=== PATIENT | male | born 1965 | race Hispanic/Latino ===

== ENCOUNTER 2020-03-28 11:19 | Emergency (ER) | payer OTHER ==
[2020-03-28 11:50] LABS: BASOPHILS % (AUTO) 0.2 % (0.0-5.0); EOSINOPHILS % (AUTO) 0.1 % (0.0-8.0); LYMPHOCYTES % (AUTO) 9.4 % (21.0-51.0); MEAN CORPUSCULAR HEMOGLOBIN 31.9 pg (27.0-33.0); MEAN CORPUSCULAR HGB CONC 34.5 g/dL (32.0-36.0); MEAN CORPUSCULAR VOLUME 92.4 fL (79-99); MONOCYTES % (AUTO) 10.5 % (3.0-13.0); NEUTROPHILS % (AUTO) 79.5 % (40.0-77.0); PLATELET COUNT (AUTO) 258 K/uL (130-400); RED BLOOD CELL COUNT(AUTO) 4.76 MIL/uL (4.50-6.20); RED CELL DISTRIBUTION WIDTH 12.9 % (11.0-15.5); WHITE BLOOD COUNT (AUTO) 10.4 K/uL (4.8-10.8)
[2020-03-28 12:00] LABS: CREATININE 1.1 mg/dL (0.5-1.5); POTASSIUM 3.2 mmol/L (3.5-5.1)
[2020-03-28 12:01] LABS: APPEARANCE,URINE Clear (CLEAR); BILIRUBIN,URINE Negative (NEGATIVE); COLOR,URINE Dark Yellow (YELLOW); GLUCOSE, URINE (UA) Negative (NEGATIVE); KETONES,URINE Trace mg/dL (NEGATIVE); LEUKOCYTE ESTERASE ,URINE Negative (NEGATIVE); NITRATE,URINE Negative (NEGATIVE); OCCULT BLOOD,URINE Negative (NEGATIVE); PROTEIN,URINE POS 1+ mg/dL (NEGATIVE)
[2020-03-28 12:04] LABS: ALBUMIN 2.6 g/dL (3.5-5.0); BILIRUBIN,TOTAL 0.7 mg/dL (0.2-1.0); TOTAL PROTEIN, SERUM 7.7 g/dL (6.0-8.3)
[2020-03-28] MEDS ORDERED: KETOROLAC TROMETHAMINE 30MG/ML ONE (12:08)
[2020-03-28 12:15] LABS: BACTERIA,URINE Rare /HPF (None Seen); RBC,URINE 0-1 /HPF (0-1); SQUAMOUS EPITHELIAL CELL,UR Few /HPF (0-2); WBC,URINE 0-1 /HPF (0-1)
== END 2020-03-28 14:35 | disposition home or self-care (01) ==
LOC: EDH 11:19
DX: S33.5XXA Sprain of ligaments of lumbar spine, initial encounter (principal); Z72.0 Tobacco use; X58.XXXA Exposure to other specified factors, initial encounter; Y93.89 Activity, other specified; Y92.89 Other specified places as the place of occurrence of the external cause; Y99.8 Other external cause status
CPT/HCPCS: 36415; 74176; 80053; 81001; 82150; 83690; 84484; 85025; 93005; 96374; 99285; J1885

== ENCOUNTER 2020-05-30 20:10 | Inpatient (IN) | payer SELFPAY ==
[2020-05-30] MEDS ORDERED: SODIUM CHLORIDE 0.9% 500ML 500 ML IV ONE (20:57)
[2020-05-30 21:08] LABS: ABG BASE EXCESS -4.7 mmol/L (-2.0-3.0); ABG HCO3 17.5 mmol/L (21.0-28.0); ABG OXYGEN SATURATION 96.9 % (95.0-99.0); ABG PCO2 26 mmHg (35-48)
[2020-05-30 21:31] LABS: BASOPHILS % (AUTO) 0.5 % (0.0-5.0); HEMATOCRIT 24.1 % (42-54); LYMPHOCYTES % (AUTO) 31.2 % (21.0-51.0); MEAN CORPUSCULAR HEMOGLOBIN 28.2 pg (27.0-33.0); MEAN CORPUSCULAR HGB CONC 31.1 g/dL (32.0-36.0); MEAN CORPUSCULAR VOLUME 90.6 fL (79-99); MONOCYTES % (AUTO) 16.5 % (3.0-13.0); NEUTROPHILS % (AUTO) 50.5 % (40.0-77.0); PLATELET COUNT (AUTO) 401 K/uL (130-400); RED BLOOD CELL COUNT(AUTO) 2.66 MIL/uL (4.50-6.20); RED CELL DISTRIBUTION WIDTH 16.3 % (11.0-15.5); WHITE BLOOD COUNT (AUTO) 5.9 K/uL (4.8-10.8)
[2020-05-30 21:48] LABS: INR 0.99 (0.85-1.15); PROTHROMBIN TIME 10.6 SEC (9.6-11.6)
[2020-05-30 21:49] LABS: PARTIAL THROMBOPLASTIN TIME 28.2 SEC (26.3-35.5)
[2020-05-30 22:01] LABS: B-TYPE NATRIURETIC PEPTIDE 22 pg/mL (0-100)
[2020-05-30 23:20] LABS: APPEARANCE,URINE Clear (CLEAR); BILIRUBIN,URINE Negative (NEGATIVE); COLOR,URINE Dark Yellow (YELLOW); GLUCOSE, URINE (UA) Negative (NEGATIVE); KETONES,URINE Negative (NEGATIVE); LEUKOCYTE ESTERASE ,URINE Negative (NEGATIVE); NITRATE,URINE Negative (NEGATIVE); OCCULT BLOOD,URINE Negative (NEGATIVE); PROTEIN,URINE Trace mg/dL (NEGATIVE)
[2020-05-30 23:45] LABS: BACTERIA,URINE Few /HPF (None Seen); MUCUS,URINE Rare LPF (None Seen); RBC,URINE 0-1 /HPF (0-1); SQUAMOUS EPITHELIAL CELL,UR 0-2 /HPF (0-2); WBC,URINE 0-1 /HPF (0-1)
[2020-05-31] MEDS ORDERED: LACTULOSE 20 GM/30 ML UDCUP PO PRN (01:15)
[2020-05-31] MEDS ORDERED: ONDANSETRON HCL 4 MG/2 ML VIAL IV PRN (01:15)
[2020-05-31] MEDS ORDERED: ACETAMINOPHEN 325 MG TAB PO PRN ×2 (01:15)
[2020-05-31 02:20] LABS: CREATININE 1.5 mg/dL (0.5-1.5)
[2020-05-31 02:25] LABS: ALBUMIN 1.6 g/dL (3.5-5.0); BILIRUBIN,TOTAL 0.3 mg/dL (0.2-1.0); TOTAL PROTEIN, SERUM 6.6 g/dL (6.0-8.3)
[2020-05-31 02:31] LABS: CRP QUANTITATIVE 233.2 mg/L (0.00-9.0)
[2020-05-31 02:37] LABS: % IRON SATURATION 14.1 % (30-44)
[2020-05-31] MEDS ORDERED: POTASSIUM CHLORIDE 10MEQ/100ML 100 ML IV PRN (03:00)
[2020-05-31] MEDS ORDERED: POTASSIUM CHLORIDE 20 MEQ ERTAB PO PRN (03:00)
[2020-05-31] MEDS ORDERED: LIDOCAINE HCL-MPF 1% 2ML VIAL IV PRN (03:00)
[2020-05-31] MEDS ORDERED: POTASSIUM CHLORIDE 10% ELIXIR 20 MEQ/15 ML UDCUP PO PRN (03:00)
[2020-05-31] MEDS ORDERED: POTASSIUM CHLORIDE 20 MEQ ERTAB PO ONE (03:30)
[2020-05-31] MEDS ORDERED: POTASSIUM CHLORIDE 10% ELIXIR 20 MEQ/15 ML UDCUP ONE (03:38)
[2020-05-31] MEDS ORDERED: SODIUM CHLORIDE 0.9% 1000ML 1,000 ML IV SCH ×2 (05:00→05:15)
[2020-05-31 05:22] LABS: BASOPHILS % (AUTO) 0.2 % (0.0-5.0); EOSINOPHILS % (AUTO) 0.3 % (0.0-8.0); HEMATOCRIT 22.7 % (42-54); LYMPHOCYTES % (AUTO) 13.5 % (21.0-51.0); MEAN CORPUSCULAR HEMOGLOBIN 28.5 pg (27.0-33.0); MEAN CORPUSCULAR HGB CONC 31.7 g/dL (32.0-36.0); MEAN CORPUSCULAR VOLUME 89.7 fL (79-99); MONOCYTES % (AUTO) 10.8 % (3.0-13.0); NEUTROPHILS % (AUTO) 74.6 % (40.0-77.0); PLATELET COUNT (AUTO) 406 K/uL (130-400); RED BLOOD CELL COUNT(AUTO) 2.53 MIL/uL (4.50-6.20); RED CELL DISTRIBUTION WIDTH 16.3 % (11.0-15.5); WHITE BLOOD COUNT (AUTO) 6.6 K/uL (4.8-10.8)
[2020-05-31 05:58] LABS: CREATININE 1.2 mg/dL (0.5-1.5); POTASSIUM 3.5 mmol/L (3.5-5.1)
[2020-05-31] MEDS ORDERED: IOHEXOL-350 75 ML VIAL IV ONE (06:39)
[2020-05-31] MEDS ORDERED: FAMOTIDINE 20MG TAB 20 MG TAB PO SCH (09:00)
== END 2020-05-31 10:17 | disposition left against medical advice (07) | DRG 812 ==
LOC: EDH 20:10 → EDHIP 20:11
PROVIDERS: ADMIT Internal Medicine; ATTEND Internal Medicine
DX: D64.9 Anemia, unspecified (principal); E87.6 Hypokalemia; K44.9 Diaphragmatic hernia without obstruction or gangrene; Z20.828 Contact with and (suspected) exposure to other viral communicable diseases
CPT/HCPCS: 36415; 36600; 71045; 80048; 80053; 81001; 82270; 82550; 82607; 82728; 82746; 82803; 83540; 83550; 83605; 83615; 83690; 83880; 84484; 85025; 85378; 85610; 85730; 86140; 86850; 86900; 86901; 86923; 87040; 87426; 87804; 93005; G0378; J7040; Q9967; U0003

== ENCOUNTER 2020-06-05 14:18 | Inpatient (IN) | payer SELFPAY ==
[~2020-06-05] VITALS: Ht 167.6 cm; Wt 85.4 kg
[2020-06-05 14:52] LABS: BASOPHILS % (AUTO) 0.4 % (0.0-5.0); EOSINOPHILS % (AUTO) 0.5 % (0.0-8.0); HEMATOCRIT 22.5 % (42-54); MEAN CORPUSCULAR HGB CONC 30.2 g/dL (32.0-36.0); MEAN CORPUSCULAR VOLUME 92.6 fL (79-99); MONOCYTES % (AUTO) 15.8 % (3.0-13.0); NEUTROPHILS % (AUTO) 61.8 % (40.0-77.0); PLATELET COUNT (AUTO) 422 K/uL (130-400); RED BLOOD CELL COUNT(AUTO) 2.43 MIL/uL (4.50-6.20); RED CELL DISTRIBUTION WIDTH 16.8 % (11.0-15.5); WHITE BLOOD COUNT (AUTO) 5.6 K/uL (4.8-10.8)
[2020-06-05 15:10] LABS: CREATININE 1.1 mg/dL (0.5-1.5); POTASSIUM 3.4 mmol/L (3.5-5.1)
[2020-06-05 15:12] LABS: INR 1.02 (0.85-1.15); PROTHROMBIN TIME 10.9 SEC (9.6-11.6)
[2020-06-05 15:14] LABS: ALBUMIN 1.9 g/dL (3.5-5.0); BILIRUBIN,TOTAL 0.2 mg/dL (0.2-1.0); PARTIAL THROMBOPLASTIN TIME 25.4 SEC (26.3-35.5); TOTAL PROTEIN, SERUM 7.2 g/dL (6.0-8.3)
[2020-06-05] MEDS ORDERED: SODIUM CHLORIDE 0.9% 1000ML 1,000 ML IV ONE (15:14)
[2020-06-05 16:07] LABS: APPEARANCE,URINE Clear (CLEAR); BILIRUBIN,URINE Small (NEGATIVE); COLOR,URINE Dark Yellow (YELLOW); GLUCOSE, URINE (UA) Negative (NEGATIVE); KETONES,URINE Negative (NEGATIVE); LEUKOCYTE ESTERASE ,URINE Trace (NEGATIVE); NITRATE,URINE Negative (NEGATIVE); OCCULT BLOOD,URINE Negative (NEGATIVE); PROTEIN,URINE Trace mg/dL (NEGATIVE)
[2020-06-05 16:10] LABS: RETICULOCYTE % (AUTO) 3.07 % (0.42-2.23)
[2020-06-05 16:15] LABS: AMPHET/METH SCREEN,URINE NEGATIVE (NEGATIVE); BARBITURATE SCREEN, URINE POSITIVE (NEGATIVE); BENZODIAZEPINES SCREEN,URINE NEGATIVE (NEGATIVE); CANNABINOID SCREEN,URINE NEGATIVE (NEGATIVE); COCAINE SCREEN,URINE NEGATIVE (NEGATIVE); OPIATE SCREEN,URINE NEGATIVE (NEGATIVE); PHENCYCLIDINE SCREEN,URINE NEGATIVE (NEGATIVE)
[2020-06-05] MEDS ORDERED: ACETAMINOPHEN-CODEINE 300/30MG TAB PO PRN (16:30)
[2020-06-05] MEDS: LACTATED RINGERS 1000ML 1,000 ML IV SCH (16:30)
[2020-06-05 16:31] LABS: THYROID STIMULATING HORMONE 2.76 uIU/mL (0.36-3.74)
[2020-06-05 16:38] LABS: BACTERIA,URINE Rare /HPF (None Seen); MUCUS,URINE Rare LPF (None Seen); RBC,URINE 0-1 /HPF (0-1); SQUAMOUS EPITHELIAL CELL,UR Rare /HPF (0-2); WBC,URINE 0-1 /HPF (0-1)
[2020-06-05 16:39] LABS: HYALINE CASTS, URINE 0-1 /LPF (0-1 /LPF)
[2020-06-05] MEDS ORDERED: LACTATED RINGERS 1000ML 1,000 ML IV ONE (16:52)
[2020-06-05 17:01] LABS: % IRON SATURATION 11.4 % (30-44)
[2020-06-05] MEDS ORDERED: SODIUM CHLORIDE 0.9% 250 ML IV ONE (17:25)
[2020-06-05] MEDS: ZOSYN 3.375GM+NS 50ML 50 ML IV SCH (18:00)
[2020-06-05] MEDS ORDERED: ZOSYN 3.375GM+NS 50ML 50 ML IV ONE (19:52)
[2020-06-05] MEDS ORDERED: PANTOPRAZOLE 40 MG/VIAL ONE (19:56)
[2020-06-05] MEDS: PANTOPRAZOLE 40 MG/VIAL IVP SCH (21:00)
[2020-06-05 23:30] VITALS: BP 140/93
[2020-06-06] MEDS: ZOSYN 3.375GM+NS 50ML 50 ML IV SCH ×4 (02:12→21:02)
[2020-06-06 03:48] VITALS: BP 129/81
[2020-06-06 04:20] LABS: BASOPHILS % (AUTO) 0.4 % (0.0-5.0); EOSINOPHILS % (AUTO) 0.6 % (0.0-8.0); HEMATOCRIT 21.8 % (42-54); LYMPHOCYTES % (AUTO) 21.9 % (21.0-51.0); MEAN CORPUSCULAR HEMOGLOBIN 28.6 pg (27.0-33.0); MEAN CORPUSCULAR HGB CONC 31.2 g/dL (32.0-36.0); MEAN CORPUSCULAR VOLUME 91.6 fL (79-99); NEUTROPHILS % (AUTO) 59.5 % (40.0-77.0); PLATELET COUNT (AUTO) 351 K/uL (130-400); RED BLOOD CELL COUNT(AUTO) 2.38 MIL/uL (4.50-6.20); RED CELL DISTRIBUTION WIDTH 16.2 % (11.0-15.5); WHITE BLOOD COUNT (AUTO) 5.3 K/uL (4.8-10.8)
[2020-06-06 04:42] LABS: ALBUMIN 1.6 g/dL (3.5-5.0); BILIRUBIN,TOTAL 0.4 mg/dL (0.2-1.0); CREATININE 0.9 mg/dL (0.5-1.5); POTASSIUM 3.5 mmol/L (3.5-5.1); TOTAL PROTEIN, SERUM 6.3 g/dL (6.0-8.3)
[2020-06-06 08:05] VITALS: BP 144/98
[2020-06-06] MEDS ORDERED: MULTIVITAMIN TABLET PO SCH (09:00)
[2020-06-06] MEDS ORDERED: THIAMINE HCL 100 MG TABLET PO SCH (09:00)
[2020-06-06] MEDS ORDERED: FOLIC ACID 1 MG TABLET PO SCH (09:00)
[2020-06-06 13:31] VITALS: BP 129/90
[2020-06-06] MEDS: PANTOPRAZOLE 40 MG/VIAL IVP SCH ×2 (14:08→21:00)
[2020-06-06] MEDS: LACTATED RINGERS 1000ML 1,000 ML IV SCH ×2 (14:08→21:03)
[2020-06-06 14:40] LABS: HEMATOCRIT 26.9 % (42-54)
[2020-06-06 16:10] VITALS: BP 120/77
[2020-06-06 19:42] VITALS: BP 130/87
== END 2020-06-06 22:43 | disposition left against medical advice (07) | DRG 812 ==
LOC: EDH 14:18 → OBSVTOIN 14:19 → EDHIP 14:19 → 4BH 23:45
PROVIDERS: ADMIT Internal Medicine; ATTEND Internal Medicine
PROC: 30233N1 Transfusion of Nonautologous Red Blood Cells into Peripheral Vein, Percutaneous Approach (ICD-10-PCS; principal; 2020-06-05)
DX: D50.9 Iron deficiency anemia, unspecified (principal); N13.6 Pyonephrosis; Z20.828 Contact with and (suspected) exposure to other viral communicable diseases; Z87.891 Personal history of nicotine dependence; N28.89 Other specified disorders of kidney and ureter; E11.9 Type 2 diabetes mellitus without complications; R19.04 Left lower quadrant abdominal swelling, mass and lump
CPT/HCPCS: 36415; 36430; 71045; 74176; 80053; 80305; 81001; 82270; 82550; 82607; 82728; 82746; 83010; 83540; 83550; 83615; 84443; 84484; 85014; 85018; 85025; 85045; 85610; 85730; 86850; 86900; 86901; 86923; 87426; C9113; G0378; J2543; J7030; J7050; J7120; P9016; U0003

== ENCOUNTER → 2020-11-04 | Outpatient (CLI) | payer OTHER | END | disposition home or self-care (01) | LOC: OIH 16:03 | PROVIDERS: ATTEND Family Medicine | DX: M47.814 Spondylosis without myelopathy or radiculopathy, thoracic region (principal) | CPT/HCPCS: 72070 ==

== ENCOUNTER 2021-11-13 12:57 | Inpatient (IN) | payer MEDICAID, OTHER ==
[2021-11-13] VITALS (20 sets, daily range): BP systolic 104–136; BP diastolic 58–82
[~2021-11-13] VITALS: Ht 170.2 cm; Wt 104.3 kg
[2021-11-13 13:34] LABS: BASOPHILS % (AUTO) 0.3 % (0.0-5.0); EOSINOPHILS % (AUTO) 0.1 % (0.0-8.0); HEMATOCRIT 45.7 % (42-54); LYMPHOCYTES % (AUTO) 3.9 % (21.0-51.0); MEAN CORPUSCULAR HEMOGLOBIN 31.7 pg (27.0-33.0); MEAN CORPUSCULAR HGB CONC 33.7 g/dL (32.0-36.0); MONOCYTES % (AUTO) 2.3 % (3.0-13.0); PLATELET COUNT (AUTO) 221 K/uL (130-400); RED BLOOD CELL COUNT(AUTO) 4.86 MIL/uL (4.50-6.20); WHITE BLOOD COUNT (AUTO) 14.2 K/uL (4.8-10.8)
[2021-11-13 13:44] LABS: BILIRUBIN,URINE Negative (NEGATIVE); COLOR,URINE Dark Yellow (YELLOW); GLUCOSE, URINE (UA) Negative (NEGATIVE); KETONES,URINE Negative (NEGATIVE); LEUKOCYTE ESTERASE ,URINE Negative (NEGATIVE); NITRATE,URINE Negative (NEGATIVE); OCCULT BLOOD,URINE Negative (NEGATIVE); PROTEIN,URINE 300 mg/dL (NEGATIVE)
[2021-11-13 13:45] LABS: APPEARANCE,URINE CLEAR (CLEAR)
[2021-11-13 13:46] LABS: POTASSIUM 4.1 mmol/L (3.5-5.1)
[2021-11-13 13:51] LABS: ALBUMIN 3.9 g/dL (3.5-5.0); BILIRUBIN,TOTAL 0.4 mg/dL (0.2-1.0); TOTAL PROTEIN, SERUM 8.5 g/dL (6.0-8.3)
[2021-11-13 13:58] LABS: BACTERIA,URINE Rare /HPF (None Seen); MUCUS,URINE Moderate LPF (None Seen); RBC,URINE None Seen /HPF (0-1); SQUAMOUS EPITHELIAL CELL,UR 0-2 /HPF (0-2); WBC,URINE 0-1 /HPF (0-1)
[2021-11-13] MEDS ORDERED: 0.9%NACL 1000ML 1,000 ML IV ONE (14:00)
[2021-11-13] MEDS ORDERED: KETOROLAC 15MG/ML VIAL (15MG/ML) IV ONE (14:00)
[2021-11-13] MEDS ORDERED: MORPHINE 4 MG SYG IVP ONE (14:00)
[2021-11-13] MEDS ORDERED: ONDANSETRON 4MG INJ IVP ONE (14:00)
[2021-11-13] MEDS ORDERED: ZOSYN 3.375GM +NS 50ML IV SCH (15:00)
[2021-11-13] MEDS ORDERED: METRONIDAZOLE 500MG/100ML BAG 100 ML IVPB SCH (15:30)
[2021-11-13] MEDS ORDERED: HYDROMORPHONE 0.5 MG SYG (0.5MG/0.5ML) IVP PRN (16:00)
[2021-11-13] MEDS ORDERED: THIAMINE HCL 100 MG/ML 2ML VIAL IVP SCH (16:00)
[2021-11-13] MEDS ORDERED: ONDANSETRON 4MG INJ IVP PRN (16:00)
[2021-11-13] MEDS ORDERED: KETOROLAC 15MG/ML VIAL (15MG/ML) IV PRN (16:00)
[2021-11-13] MEDS: DEXTROSE 5 % AND 0.9 % NACL 1,000 ML IV SCH (16:00)
[2021-11-13] MEDS ORDERED: CEFAZOLIN SODIUM 1 GM VIAL ONE (16:34)
[2021-11-13] MEDS ORDERED: BUPIVACAINE/PF 0.25% 30ML VIAL IJ ONE (16:35)
[2021-11-13] MEDS ORDERED: LIDOCAINE 1%-EPI 1:100,000 20 ML VIAL IJ ONE (16:35)
[2021-11-13] MEDS ORDERED: LACTATED RINGERS 1000ML 1,000 ML IV ONE (17:13)
[2021-11-13] MEDS ORDERED: PROPOFOL 10 MG/ML 20ML VIAL IV ONE (17:24)
[2021-11-13] MEDS ORDERED: SUCCINYLCHOLINE CHLORIDE 20 MG/ML 10 ML VIAL ONE (17:24)
[2021-11-13] MEDS ORDERED: LIDOCAINE PF 100MG/5ML (2%) SYRINGE 5ML ONE (17:24)
[2021-11-13] MEDS ORDERED: FENTANYL CITRATE PF 50 MCG/1 ML 2ML VIAL ONE (17:25)
[2021-11-13] MEDS ORDERED: ROCURONIUM 10MG/1ML SYR 10 MG/ML ML ONE ×2 (17:25→18:05)
[2021-11-13] MEDS ORDERED: MIDAZOLAM HCL 1 MG/ML 2ML VIAL ONE (17:25)
[2021-11-13] MEDS ORDERED: NEOSTIGMINE 5MG/5ML SYR IV ONE (18:27)
[2021-11-13] MEDS ORDERED: GLYCOPYRROLATE 1 MG/5 ML SYRINGE ONE (18:27)
[2021-11-13] MEDS ORDERED: LABETALOL 20MG VIAL IV ONE (18:34)
[2021-11-13] MEDS ORDERED: SUGAMMADEX SODIUM 200 MG/2 ML VIAL IV ONE (18:41)
[2021-11-13] MEDS ORDERED: IPRATROPIUM/ALBUTEROL SULFATE 3 ML SOLUTION IH ONE ×2 (19:06→19:30)
[2021-11-13] MEDS ORDERED: METRONIDAZOLE 500MG/100ML BAG 100 ML ONE (20:40)
[2021-11-13] MEDS: METRONIDAZOLE 500MG/100ML BAG 100 ML IVPB SCH (20:50)
[2021-11-13] MEDS ORDERED: AMLO-257 PO (21:17)
[2021-11-13] MEDS ORDERED: OMEP40CA21 PO (21:17)
[2021-11-13] MEDS ORDERED: CHOL500051 PO (21:17)
[2021-11-13] MEDS ORDERED: CYAN-52 PO (21:17)
[2021-11-13] MEDS ORDERED: GEMF600T89 PO (21:17)
[2021-11-13] MEDS ORDERED: LORA10TA7 PO (21:17)
[2021-11-13] MEDS ORDERED: METO25 PO (21:17)
[2021-11-13] MEDS ORDERED: HYDROMORPHONE 1 MG INJ IVP PRN (21:30)
[2021-11-13] MEDS: ZOSYN 3.375GM +NS 50ML IV SCH (23:58)
[2021-11-14 00:05] VITALS: BP 136/74
[2021-11-14] MEDS: OXYCODONE/ACETAMIN 5/325MG TAB PO PRN ×2 (00:19→08:06)
[2021-11-14 01:05] VITALS: BP 128/56
[2021-11-14 02:05] VITALS: BP 123/71
[2021-11-14] MEDS: DEXTROSE 5 % AND 0.9 % NACL 1,000 ML IV SCH (04:30)
[2021-11-14 05:10] LABS: HEMATOCRIT 34.8 % (42-54); MEAN CORPUSCULAR HEMOGLOBIN 31.4 pg (27.0-33.0); MEAN CORPUSCULAR HGB CONC 32.5 g/dL (32.0-36.0); MEAN CORPUSCULAR VOLUME 96.7 fL (79-99); RED BLOOD CELL COUNT(AUTO) 3.6 MIL/uL (4.50-6.20); RED CELL DISTRIBUTION WIDTH 12.9 % (11.0-15.5); WHITE BLOOD COUNT (AUTO) 10.8 K/uL (4.8-10.8)
[2021-11-14] MEDS: METRONIDAZOLE 500MG/100ML BAG 100 ML IVPB SCH (05:21)
[2021-11-14 05:23] LABS: HEMOGLOBIN A1C 6.4 % (4.0-6.0)
[2021-11-14 05:42] LABS: CREATININE 1.1 mg/dL (0.5-1.5); MAGNESIUM 1.6 mg/dL (1.80-2.40); POTASSIUM 3.7 mmol/L (3.5-5.1); THYROID STIMULATING HORMONE 1.35 uIU/mL (0.36-3.74)
[2021-11-14 08:00] VITALS: BP 114/70
[2021-11-14] MEDS: ZOSYN 3.375GM +NS 50ML IV SCH (08:05)
[2021-11-14] MEDS ORDERED: MAGNESIUM 2GM PREMIX 50ML 50 ML IV SCH (10:00)
[2021-11-14 11:33] VITALS: BP 132/76
== END 2021-11-14 13:25 | disposition home or self-care (01) | DRG 234 ==
LOC: EDH 12:57 → EDHIP 12:58 → 3AH 20:24
PROVIDERS: ADMIT Internal Medicine; ATTEND Internal Medicine
PROC: 0DTJ4ZZ Resection of Appendix, Percutaneous Endoscopic Approach (ICD-10-PCS; principal; 2021-11-13 17:25)
DX: K35.80 Unspecified acute appendicitis (principal); E87.1 Hypo-osmolality and hyponatremia; E66.9 Obesity, unspecified; E86.1 Hypovolemia; I10 Essential (primary) hypertension; E11.9 Type 2 diabetes mellitus without complications; F17.210 Nicotine dependence, cigarettes, uncomplicated; Z68.36 Body mass index [BMI] 36.0-36.9, adult; Z20.822 Contact with and (suspected) exposure to COVID-19
CPT/HCPCS: 36415; 71045; 74176; 80048; 80053; 81001; 83036; 83690; 83735; 84443; 85025; 85027; 87635; 94640; A4344; G0378; J0330; J0690; J1170; J1885; J2001; J2250; J2270; J2405; J2543; J2704; J2710; J3010; J3475; J3490; J7030; J7120

== ENCOUNTER 2022-01-30 19:39 | Emergency (ER) | payer MEDICAID ==
[~2022-01-30] VITALS: Ht 167.6 cm; Wt 108.4 kg
[~2022-01-30 19:39] MED LIST: AMLO-257 PO; CHOL500051 PO; CYAN-52 PO; GEMF600T89 PO; LORA10TA7 PO; METO25 PO; OMEP40CA21 PO
[2022-01-30] MEDS ORDERED: ONDANSETRON 4MG INJ IVP ONE (20:00)
[2022-01-30] MEDS ORDERED: 0.9%NACL 1000ML 1,000 ML IV SCH (20:00)
[2022-01-30 20:33] LABS: APPEARANCE,URINE CLEAR (CLEAR); BILIRUBIN,URINE MODERATE (NEGATIVE); COLOR,URINE YELLOW (YELLOW); GLUCOSE, URINE (UA) NEGATIVE (NEGATIVE); KETONES,URINE 5 mg/dL (NEGATIVE); LEUKOCYTE ESTERASE ,URINE NEGATIVE (NEGATIVE); NITRATE,URINE POSITIVE (NEGATIVE); OCCULT BLOOD,URINE NEGATIVE (NEGATIVE); PROTEIN,URINE 100 mg/dL (NEGATIVE)
[2022-01-30 20:39] LABS: CREATININE 1.8 mg/dL (0.5-1.5)
[2022-01-30 20:41] LABS: RBC,URINE 0-1 /HPF (0-1); WBC,URINE 0-1 /HPF (0-1)
[2022-01-30 20:42] LABS: BACTERIA,URINE Few /HPF (None Seen); MUCUS,URINE Few LPF (None Seen)
[2022-01-30 20:43] LABS: SQUAMOUS EPITHELIAL CELL,UR Moderate /HPF (0-2)
[2022-01-30 20:45] LABS: BASOPHILS % (AUTO) 0.4 % (0.0-5.0); HEMATOCRIT 45.9 % (42-54); LYMPHOCYTES % (AUTO) 3.4 % (21.0-51.0); MEAN CORPUSCULAR HEMOGLOBIN 31.4 pg (27.0-33.0); MEAN CORPUSCULAR HGB CONC 33.6 g/dL (32.0-36.0); MEAN CORPUSCULAR VOLUME 93.5 fL (79-99); MONOCYTES % (AUTO) 4.1 % (3.0-13.0); NEUTROPHILS % (AUTO) 91.8 % (40.0-77.0); PLATELET COUNT (AUTO) 236 K/uL (130-400); RED BLOOD CELL COUNT(AUTO) 4.91 MIL/uL (4.50-6.20); WHITE BLOOD COUNT (AUTO) 11.3 K/uL (4.8-10.8)
[2022-01-30 20:46] LABS: ALBUMIN 4.1 g/dL (3.5-5.0); CRP QUANTITATIVE 114.2 mg/L (0.00-9.0); TOTAL PROTEIN, SERUM 9.1 g/dL (6.0-8.3)
[2022-01-30 21:00] VITALS: BP 130/88
[2022-01-30] MEDS ORDERED: MAG/ALUM/SIMETH 30 ML UDCUP PO ONE (21:00)
[2022-01-30] MEDS ORDERED: CEFTRIAXONE 1G VIAL IVP ONE (21:00)
[2022-01-30] MEDS ORDERED: FAMOTIDINE 20MG VIAL IV ONE (21:00)
[2022-01-30] MEDS ORDERED: DICYCLOMINE HCL 10 MG/5 ML ML PO ONE (21:00)
[2022-01-30] MEDS ORDERED: ACETAMINOPHEN 500 MG TABLET PO ONE (21:00)
[2022-01-30] MEDS ORDERED: LIDOCAINE HCL 2% VISCOUS 15 ML UDCUP PO ONE (21:00)
[2022-01-30] MEDS ORDERED: ONDA4TAB10 PO (21:04)
[2022-01-30] MEDS ORDERED: ACET-2247 PO (21:04)
[2022-01-30] MEDS ORDERED: LEVO-70 PO (21:04)
[2022-01-30] MEDS ORDERED: DICY20TA2 PO (21:04)
== END 2022-01-30 21:45 | disposition home or self-care (01) ==
LOC: EDH 19:39
DX: U07.1 COVID-19 (principal); K52.9 Noninfective gastroenteritis and colitis, unspecified; N39.0 Urinary tract infection, site not specified; I95.1 Orthostatic hypotension; E86.0 Dehydration; E66.9 Obesity, unspecified; E78.00 Pure hypercholesterolemia, unspecified; I10 Essential (primary) hypertension; Z79.899 Other long term (current) drug therapy; Z68.38 Body mass index [BMI] 38.0-38.9, adult
CPT/HCPCS: 99284; 96374; 96375; 87635; 96361; 84484; 80053; 85025; 87088; 87804 ×2; 83605; 86140; 81001; 36415; C9803; J7030; J0696; J2405; S0028; J3490

== ENCOUNTER 2023-06-18 19:39 | Emergency (ER) | payer MEDICAID ==
[~2023-06-18] VITALS: Ht 170.2 cm; Wt 115.0 kg
[~2023-06-18 19:39] MED LIST changes: +ACET-2247 PO; +DICY20TA2 PO; +LEVO-70 PO; +ONDA4TAB10 PO
[2023-06-18 20:30] LABS: SARS-CoV-2, RNA, NAAT NEGATIVE SARS CoV-2 (NEGATIVE)
[2023-06-18 20:35] LABS: INFLUENZA TYPE B Negative For Type B (NEGATIVE)
[2023-06-18 20:38] LABS: INFLUENZA TYPE A Positive For Type A (NEGATIVE)
[2023-06-18 21:07] LABS: BASOPHILS # (AUTO) 0.03 K/uL (0.00-0.20); BASOPHILS % (AUTO) 0.4 % (0.0-5.0); EOSINOPHILS # (AUTO) 0.03 K/uL (0.00-0.70); EOSINOPHILS % (AUTO) 0.4 % (0.0-8.0); HEMATOCRIT 48.2 % (42-54); IMMATURE GRANULOCYTE ABSOLUTE 0.03 K/uL (0-1); LYMPHOCYTES # (AUTO) 0.6 K/uL (1.0-4.8); LYMPHOCYTES % (AUTO) 8.1 % (21.0-51.0); MEAN CORPUSCULAR HEMOGLOBIN 29.7 pg (27.0-33.0); MEAN CORPUSCULAR VOLUME 89.9 fL (79-99); MONOCYTES # (AUTO) 0.6 K/uL (0.1-1.0); NEUTROPHILS # (AUTO) 5.7 K/uL (1.8-7.7); NEUTROPHILS % (AUTO) 81.7 % (40.0-77.0); PLATELET COUNT (AUTO) 217 K/uL (130-400); RED BLOOD CELL COUNT(AUTO) 5.36 MIL/uL (4.50-6.20); RED CELL DISTRIBUTION WIDTH 14.1 % (11.0-15.5)
[2023-06-18 21:17] LABS: CARBON DIOXIDE 28 mmol/L (21-32); CHLORIDE 100 mmol/L (101-111); CREATININE 1.2 mg/dL (0.5-1.5); GLOMERULAR FILTR. RATE CALC 70 mL/min (>90); GLUCOSE,RANDOM 308 mg/dL (70-105); POTASSIUM 4.6 mmol/L (3.5-5.1); SODIUM SERUM 137 mmol/L (136-145); UREA NITROGEN, BLOOD 15 mg/dL (7-18)
[2023-06-18 21:25] LABS: CREATINE KINASE, TOTAL 218 U/L (21-232)
[2023-06-18] MEDS ORDERED: OSEL75 PO (22:41)
[2023-06-18] MEDS ORDERED: BENZ200C53 PO (22:41)
[2023-06-18 22:44] LABS: B-TYPE NATRIURETIC PEPTIDE 7 pg/mL (0-100)
[2023-06-18 22:54] VITALS: BP 140/83; PULSE 92; RESP 18; O2SAT 97
[2023-06-18] MEDS ORDERED: BENZONATATE 100 MG CAPSULE PO PRN (23:00)
== END 2023-06-18 23:03 | disposition home or self-care (01) ==
LOC: EDH 19:39
DX: J10.1 Influenza due to other identified influenza virus with other respiratory manifestations (principal); E11.9 Type 2 diabetes mellitus without complications; E66.9 Obesity, unspecified; I10 Essential (primary) hypertension; Z20.822 Contact with and (suspected) exposure to COVID-19
CPT/HCPCS: 36415; 71045; 80048; 82550; 83880; 84484; 85025; 87635; 87804; 93005

== ENCOUNTER 2024-10-13 11:22 | Emergency (ER) | payer MEDICAID ==
[~2024-10-13] VITALS: Ht 172.7 cm; Wt 115.2 kg
[~2024-10-13 11:22] MED LIST changes: +BENZ200C53 PO; +ONDA-243 PO; -ONDA4TAB10 PO; +OSEL75 PO
--- NOTE | 2024-10-13 11:35 | ERN ---
General Chief Complaint: Abdominal Pain Stated Complaint: EPIGASTRIC PAIN Time Seen by MD: 11:27 Source: patient History of Present Illness Initial Comments PATIENT IS A 59-YEAR-OLD GENTLEMAN COMING IN TO BE EVALUATED FOR EPIGASTRIC PAIN. PATIENT STATES THAT THE PAIN HAS BEEN ONGOING FOR THREE DAYS. PREVIOUSLY HE WAS DIAGNOSED WITH GASTRITIS AND HAS A SURGICAL PROCEDURE TO REVERSAL. HE STATES THAT HE HAS BEEN OKAY UNTIL THREE DAYS AGO WHEN HE STARTED HAVING EPIGASTRIC DISCOMFORT. NO NAUSEOUSNESS OR VOMITING JUST A BURNING SENSATION. Allergies: Coded Allergies: No Known Allergies (Verified Allergy, Unknown, 05/31/20) Home Meds Active Scripts Benzonatate (Benzonatate) 200 Mg Capsule, 200 MG PO Q6HPRN PRN for COUGH/COLD SYMPTOMS for 7 Days, #28 CAP Prov:DWAIN MILAN VALIDATION CONSULTANT 06/18/23 Oseltamivir Phosphate (Tamiflu) 75 Mg Cap, 75 MG PO BID for 5 Days, #10 CAP Prov:DWAIN MILAN VALIDATION CONSULTANT 06/18/23 Acetaminophen (Tylenol) 325 Mg Tablet, 650 MG PO Q4HPRN, #50 TAB Prov:SHAWN JAIN 01/30/22 Ondansetron (Ondansetron Odt) 4 Mg Tab.rapdis, 4 MG PO TID, #21 TAB Prov:HSAWN JAIN 01/30/22 Dicyclomine HCl (Bentyl) 20 Mg Tab, 20 MG PO QIDP, #28 TAB Prov:SHAWN JAIN 01/30/22 Levofloxacin (Levofloxacin) 500 Mg Tablet, 1 TAB PO DAILY for 10 Days, #10 TAB 0 Refills Prov:SHAWN JAIN 01/30/22 Reported Medications Loratadine (Claritin) 10 Mg Tab, 1 TAB PO QDP 11/13/21 Omeprazole (Omeprazole) 40 Mg Capsule.dr, 1 CAP PO QDP 11/13/21 Amlodipine Besylate (Amlodipine Besylate) 5 Mg Tablet, 1 TAB PO QDP 11/13/21 Gemfibrozil (Gemfibrozil) 600 Mg Tablet, 1 TAB PO QDP 11/13/21 Cyanocobalamin (Vitamin B-12) (Vitamin B-12) 1,000 Mcg Tablet, 1 TAB PO QDP 11/13/21 Cholecalciferol (Vitamin D3) (Vitamin D3) 125 Mcg Capsule, 1 CAP PO QDP 11/13/21 Metoprolol Tartrate (Lopressor) 25 Mg Tab, 1 TAB PO BID 11/13/21 Past Medical History Past Medical History: Diabetes-Type I, Diabetes-Type II, High Cholesterol, Hypertension Medical History Other: Obese Past Surgical History: Other Surgical History Other: KIDNEY CYST REMOVAL Family History Family History: Negative Social History Social History: Lives with family, Other ROS Dictation CONSTITUTIONAL: NO CHILLS, NO FEVER, NO WEAKNESS, NO DIAPHORESIS, NO MALAISE. HEAD/FACE: NO SIGNS OF TRAUMA. EENT: NO EYE PAIN, NO BLURRED VISION, NO TEARING, NO DOUBLE VISION, NO EAR PAIN, NO EAR DISCHARGE, NO NOSE PAIN, NO NASAL CONGESTION, NO THROAT PAIN, NO THROAT SWELLING, NO MOUTH PAIN. RESPIRATORY: NO COUGH, NO ORTHOPNEA, NO SOB, NO STRIDOR, NO WHEEZING. CARDIOVASCULAR: NO CHEST PAIN, NO EDEMA, NO PALPITATIONS, NO SYNCOPE. GASTROINTESTINAL/ABDOMINAL: ABDOMINAL PAIN, NO CONSTIPATION, NO DIARRHEA, NO NAUSEA, NO VOMITING. GENITOURINARY: NO ABNORMAL DISCHARGE, NO DYSURIA, NO FREQUENT URINATION, NO HEMATURIA. NO COMPLAINTS OF PAIN IN THE GENITALS. MUSCULOSKELETAL: NO BACK PAIN, NO GOUT, NO JOINT PAIN, NO JOINT SWELLING, NO MUSCLE PAIN, NO MUSCLE STIFFNESS, NO NECK PAIN. INTEGUMENTARY: NO CHANGE IN COLOR, NO CHANGE IN HAIR/NAILS, NO DRYNESS, NO LESION, NO LUMPS, NO RASH. NEUROLOGICAL/PSYCH: NO ANXIETY, NOT DEPRESSED, NO EMOTIONAL PROBLEM, NO HEADACHE, NO NUMBNESS, NO PRE-EXISTING DEFICIT, NO HISTORY OF SEIZURES, NO CRAIG MORS, NO WEAKNESS. HEMATOLOGIC/LYMPHATIC: NOT ANEMIC, NO HISTORY OF BLOOD CLOTS, NO APPARENT BLEEDING, NO BRUISING, GLANDS NOT SWOLLEN. ALL SYSTEMS NEGATIVE, EXCEPT NOTED. Physical Exam Physical Exam Dictation VITAL SIGNS: REVIEWED. GENERAL APPEARANCE: ALERT, ORIENTED X3, NO ACUTE DISTRESS, OBESE. HEAD AND FACE: NON-TRAUMATIC. EYES: PERRL, PINK CONJUNCTIVAS, EYELID NO TRAUMA, ANTERIOR CHAMBER CLEAR. EARS: PINNAS INTACT AND NO SIGNS OF TRAUMA OR ERYTHEMA. EAR CANALS CLEAR AND NO DISCHARGE. TMS NO ERYTHEMA. NOSE: NO DISCHARGE, NO BLEEDING. OROPHARYNX: MOUTH NORMAL, TEETH NO CARIES, TONGUE PINK. PHARYNX CLEAR, NO ERYTHEMA. TONSILS NO EXUDATES, NO ABSCESSES NOTED. MUCOUS MEMBRANE MOIST. NECK: SUPPLE, NON-TENDER, NO THYROMEGALY, NO MASSES, NO JVD, NO BRUITS. BREAST: DEFERRED. CHEST: NO TENDERNESS, NO CREPITUS, NO PARADOXICAL MOVEMENT, NO RETRACTIONS. LUNGS: CLEAR, WELL-VENTILATED, SYMMETRIC, NO RALES, NO WHEEZING, NO RHONCHI, NO STRIDOR, GOOD BREATH SOUNDS BILATERALLY. HEART: REGULAR RATE, REGULAR RHYTHM, NO MURMUR, NO GALLOPS. VASCULAR: NO PERIPHERAL EDEMA. ABDOMEN: SOFT, POSITIVE BOWEL SOUNDS, NONDISTENDED, NO GUARDING, EPIGASTRIC TENDER, NO REBOUND, NO MASSES NO HEPATOMEGALY, NO SPLENOMEGALY, NO RAMÍREZ'S SIGN, NO HERNIAS. RECTAL: DEFERRED. GENITAL: DEFERRED. NEUROLOGICAL: NORMAL SPEECH, GROSS MOTOR FUNCTION INTACT, GROSS SENSORY FUNCTION INTACT. MUSCULOSKELETAL: NECK NONTENDER, FULL RANGE OF MOTION, BACK NONTENDER, FULL RANGE OF MOTION. EXTREMITIES: NONTENDER, FULL RANGE OF MOTION. SKIN: COLOR PINK, DRY, NO TURGOR, NO RASH, NO LACERATIONS, NO ABRASIONS, NO CONTUSIONS. LYMPHATICS: DEFERRED. Results Laboratory and Microbiology Lab and Micro Result Laboratory Tests Test 10/13/24 11:52 10/13/24 12:00 White Blood Count 8.1 K/uL (4.8-10.8) Red Blood Count 4.94 MIL/uL (4.50-6.20) Hemoglobin 14.4 g/dL (14.0-18.0) Hematocrit 44.5 % (42-54) Mean Corpuscular Volume 90.1 fL (79-99) Mean Corpuscular Hemoglobin 29.1 pg (27.0-33.0) Mean Corpuscular Hemoglobin Concent 32.4 g/dL (32.0-36.0) Red Cell Distribution Width 15.2 % (11.0-15.5) Platelet Count 340 K/uL (130-400) Mean Platelet Volume 10.2 fL (7.5-10.5) Immature Granulocyte % (Auto) 0.6 % (0-1) Neutrophils (%) (Auto) 69.4 % (40.0-77.0) Lymphocytes (%) (Auto) 20.2 % (21.0-51.0) L Monocytes (%) (Auto) 7.0 % (3.0-13.0) Eosinophils (%) (Auto) 2.3 % (0.0-8.0) Basophils (%) (Auto) 0.5 % (0.0-5.0) Neutrophils # (Auto) 5.6 K/uL (1.8-7.7) Lymphocytes # (Auto) 1.6 K/uL (1.0-4.8) Monocytes # (Auto) 0.6 K/uL (0.1-1.0) Eosinophils # (Auto) 0.19 K/uL (0.00-0.70) Basophils # (Auto) 0.04 K/uL (0.00-0.20) Absolute Immature Granulocyte (auto 0.05 K/uL (0-1) Nucleated Red Blood Cells 0.0 % (0.0-0.19) Sodium Level 138 mmol/L (136-145) Potassium Level 4.3 mmol/L (3.5-5.1) Chloride Level 104 mmol/L (101-111) Carbon Dioxide Level 27 mmol/L (21-32) Blood Urea Nitrogen 23 mg/dL (7-18) H Creatinine 1.3 mg/dL (0.5-1.3) Glomerular Filtration Rate Calc 63 mL/min (>90) Random Glucose 205 mg/dL (70-105) H Total Calcium 9.2 mg/dL (8.5-10.1) Total Bilirubin 0.3 mg/dL (0.2-1.0) Aspartate Amino Transf (AST/SGOT) 25 U/L (10-37) Alanine Aminotransferase (ALT/SGPT) 30 U/L (12-78) Alkaline Phosphatase 96 U/L (50-136) Total Creatine Kinase 84 U/L (21-232) # Troponin I High Sensitivity 4 ng/L (4-75) Total Protein 7.9 g/dL (6.0-8.3) Albumin 3.6 g/dL (3.5-5.0) Lipase 132 U/L (16-77) H Urine Color LIGHT-YELLOW (YELLOW) Urine Appearance CLEAR (CLEAR) Urine pH 6.0 (5.0-8.0) Urine Specific [place] 1.029 (1.001-1.031) Urine Protein NEGATIVE mg/dL (NEGATIVE) Urine Glucose (UA) >=1000 mg/dL (NEGATIVE) H Urine Ketones NEGATIVE mg/dL (NEGATIVE) Urine Occult Blood NEGATIVE (NEGATIVE) Urine Nitrate NEGATIVE (NEGATIVE) Urine Bilirubin NEGATIVE mg/dL (NEGATIVE) Urine Urobilinogen 2.0 mg/dL (0.2-1.0) H Urine Leukocyte Esterase NEGATIVE [place]/uL Urine RBC 0-1 /HPF (0-1) Urine WBC 0-1 /HPF (0-1) Urine Squamous Epithelial Cells RARE /HPF (0-2) Urine Bacteria None /HPF (None Seen) Labs Reviewed?: Yes EKG/XRAY/US/CT/MRI EKG Comment 10/13/2024 TIME 11:36 A.M. VENTRICULAR RATE 71 SINUS RHYTHM IN [address] WAVE ELEVATION OR DEPRESSION MDM MDM: DIFFERENTIAL DIAGNOSIS: GASTRITIS, GERD, PANCREATITIS, STEMI, NSTEMI, RATIONALE: TESTS CONSIDERED AND ORDERED SECONDARY TO SHARED DECISION MAKING INCLUDE: PREVIOUS OUTSIDE RECORDS REVIEWED: OLD ER VISITS. RISK OF COMPLICATION AND/OR MORBIDITY OR MORTALITY OF PATIENT MANAGEMENT: NONE IN HIS IS A 59-YEAR-OLD MALE COMING IN TO BE EVALUATED FOR EPIGASTRIC PAIN. LABORATORY WORKUP NEGATIVE SO HE WAS FINDINGS RECEIVED SHE WAS COCKTAIL WELL IV PROTONIX STATES HE FEELS. PATIENT WAS OF THE HISTORY OF GASTRITIS HE WILL BE DISCHARGED IN STABLE CONDITION HE WAS PROTONIX. ED Course Orders Procedure Category Date Status Time Cbc With Differential LAB 10/13/24 Complete 11:32 Comprehensive LAB 10/13/24 Complete Metabolic Panel 11:32 Troponin I High LAB 10/13/24 Complete Sensitivity 11:32 Urinalysis Profile LAB 10/13/24 Complete 11:32 12 Lead Ekg Tracing- EKG 10/13/24 Logged Technical 11:32 Lactated Ringers PHA 10/13/24 Complete 1000ml (Lactated 12:00 Ondansetron 4mg Inj PHA 10/13/24 Complete (Zofran 4mg Inj) 12:00 Lidocaine Hcl 2% PHA 10/13/24 Complete Viscous (Lidocaine Hcl 12:00 Mag/Alum/Simeth 30ml PHA 10/13/24 Complete (Maalox Plus 30ml) 12:00 Pantoprazole 40mg Inj PHA 10/13/24 Complete (Protonix 40mg Inj 12:00 Creatine Kinase, Total LAB 10/13/24 Complete 11:32 Chest 1vw RAD 10/13/24 Resulted 11:32 Lipase LAB 10/13/24 Complete 11:32 Current Medications Medications (Trade) Dose Ordered Sig/John Route PRN Reason Start Time Stop Time Status Last Admin Dose Admin Al Hydroxide/Mg Hydroxide (MAALox PLUS 30ML) 30 ml ONCE ONCE PO 10/13/24 12:00 10/13/24 12:01 DC 10/13/24 11:45 Lactated Ringer's 1,000 ml @ 0 mls/hr ONCE ONCE IV 10/13/24 12:00 10/13/24 12:01 DC 10/13/24 11:45 Lidocaine HCl (Lidocaine HCl 2% Viscous) 10 ml ONCE ONCE PO 10/13/24 12:00 10/13/24 12:01 DC 10/13/24 11:45 Ondansetron HCl (zoFRAN 4MG INJ) 4 mg ONCE ONCE IVP 10/13/24 12:00 10/13/24 12:01 DC 10/13/24 11:45 Pantoprazole Sodium (PROTonix 40MG INJ) 40 mg ONCE ONCE IVP 10/13/24 12:00 10/13/24 12:01 DC 10/13/24 11:45 Vital Signs Date Time Temp Pulse Resp B/P (MAP) Pulse Ox O2 Delivery O2 Flow Rate FiO2 10/13/24 11:26 97.5 79 16 113/73 94 Room Air DX & DISP Disposition: Discharge Departure Impression: Primary Impression: Gastritis Additional Impression: GERD (gastroesophageal reflux disease) Condition: Stable Scripts Pantoprazole Sodium (Protonix) 40 Mg Ectab 1 TAB PO DAILY for 30 Days, #30 TAB 0 Refills Prov: ANAI DE ANDA MD 10/13/24 Additional Instructions: FOLLOW-UP WITH PRIMARY CARE PROVIDER IN 1 TO 2 DAYS. TAKE MEDICATIONS DIRECTED HERE IN THE EMERGENCY ROOM. OKAY TO CONTINUE HOME MEDICATIONS UNLESS OTHERWISE DISCUSSED DURING YOUR VISIT IN THE EMERGENCY ROOM TODAY. RETURN TO YOUR NEAREST EMERGENCY ROOM IF SYMPTOMS WORSEN OR IF THERE IS NO IMPROVEMENT. CALL 911 IF YOU NEED IMMEDIATE ASSISTANCE. TAKE TYLENOL [id number] NEEDED AND IF NO CONTRAINDICATIONS ARE PRESENT. INCREASE ORAL HYDRATION. A WOUND CULTURE OR URINE CULTURE WAS ORDERED HERE IN THE EMERGENCY ROOM DEPARTMENT PLEASE FOLLOW-UP WITH PRIMARY CARE PROVIDER AND ADVISE THEM TO GET REPEAT PORTS FROM OUR FACILITY. IF YOU HAD ANY KELVIN WRAP/SPLINTS THAT WERE APPLIED HERE, PLEASE DO NOT REMOVE THEM UNTIL YOU SEE YOUR PRIMARY CARE OR SPECIALTY. REFERRALS: Referrals: SELF,REFERRAL (PCP) KATTY ALBERT MD Time of Disposition: 12:46 ANAI DE ANDA MD October 13, 2024 11:34
[2024-10-13] MEDS: ondanSETRON 4MG INJ IVP ONE (11:45)
[2024-10-13] MEDS: MAG/ALUM/SIMETH 30 ML UDCUP PO ONE (11:45)
[2024-10-13] MEDS: PANTOPrazole 40 MG/VIAL IVP ONE (11:45)
[2024-10-13] MEDS: LIDOCAINE HCL 2% VISCOUS 15 ML UDCUP PO ONE (11:45)
[2024-10-13] MEDS: LACTATED RINGERS 1000ML 1,000 ML IV ONE (11:45)
--- NOTE | 2024-10-13 12:14 | HMCIMG ---
CHEST 1VW HISTORY: Chest pain COMPARISON: 2023 FINDINGS: A frontal projection of the chest was obtained. No acute pulmonary infiltrates is seen. The heart is borderline enlarged. Prominent interstitial markings are seen. Degenerative changes are seen. IMPRESSION: 1. No acute pulmonary infiltrate is seen.
[2024-10-13 12:15] LABS: BASOPHILS # (AUTO) 0.04 K/uL (0.00-0.20); BASOPHILS % (AUTO) 0.5 % (0.0-5.0); EOSINOPHILS # (AUTO) 0.19 K/uL (0.00-0.70); EOSINOPHILS % (AUTO) 2.3 % (0.0-8.0); HEMATOCRIT 44.5 % (42-54); IMMATURE GRANULOCYTE ABSOLUTE 0.05 K/uL (0-1); LYMPHOCYTES # (AUTO) 1.6 K/uL (1.0-4.8); LYMPHOCYTES % (AUTO) 20.2 % (21.0-51.0); MEAN CORPUSCULAR HEMOGLOBIN 29.1 pg (27.0-33.0); MEAN CORPUSCULAR HGB CONC 32.4 g/dL (32.0-36.0); MEAN CORPUSCULAR VOLUME 90.1 fL (79-99); MONOCYTES # (AUTO) 0.6 K/uL (0.1-1.0); NEUTROPHILS # (AUTO) 5.6 K/uL (1.8-7.7); NEUTROPHILS % (AUTO) 69.4 % (40.0-77.0); PLATELET COUNT (AUTO) 340 K/uL (130-400); RED BLOOD CELL COUNT(AUTO) 4.94 MIL/uL (4.50-6.20); RED CELL DISTRIBUTION WIDTH 15.2 % (11.0-15.5); WHITE BLOOD COUNT (AUTO) 8.1 K/uL (4.8-10.8)
[2024-10-13 12:18] LABS: APPEARANCE,URINE CLEAR (CLEAR); BILIRUBIN,URINE NEGATIVE (NEGATIVE); COLOR,URINE LIGHT-YELLOW (YELLOW); GLUCOSE, URINE (UA) >=1000 mg/dL (NEGATIVE); KETONES,URINE NEGATIVE (NEGATIVE); LEUKOCYTE ESTERASE ,URINE NEGATIVE Leu/uL (NEGATIVE); NITRATE,URINE NEGATIVE (NEGATIVE); OCCULT BLOOD,URINE NEGATIVE (NEGATIVE); PROTEIN,URINE NEGATIVE (NEGATIVE)
[2024-10-13 12:19] LABS: ADD UA MICROSCOPIC YES
[2024-10-13 12:20] LABS: RBC,URINE 0-1 /HPF (0-1); SQUAMOUS EPITHELIAL CELL,UR RARE /HPF (0-2); WBC,URINE 0-1 /HPF (0-1)
[2024-10-13 12:33] LABS: ALBUMIN 3.6 g/dL (3.5-5.0); BILIRUBIN,TOTAL 0.3 mg/dL (0.2-1.0); CREATININE 1.3 mg/dL (0.5-1.3); POTASSIUM 4.3 mmol/L (3.5-5.1); TOTAL PROTEIN, SERUM 7.9 g/dL (6.0-8.3)
[2024-10-13] MEDS ORDERED: PANT40TA55 PO (12:46)
[2024-10-13 12:52] VITALS: BP 112/71; PULSE 79; RESP 16; TEMP 97.5; O2SAT 95
--- NOTE | 2024-10-13 13:14 | EKG ---
[facility] Test Date: 2024-10-13 Test Time: 11:36:58 Pat Name: PRASHANT KU Department: [facility] Room: Gender: Oysterman: [id number] : 1965 Requested By: ANAI DE ANDA Order Number: [id number] Reading MD: Sandoval Hess Measurements Intervals [place] Rate: 71 P: 40 FL: 167 QRS: 11 QRSD: 90 T: 32 QT: 371 QTc: 404 Interpretive Statements Sinus rhythm Low voltage, precordial leads Compared to ECG 06/18/2023 20:02:52 Low QRS voltage now present Sinus tachycardia no longer present Electronically Signed On 10-13-2024 15:52:48 CDT by Sandoval Hess Please click the below link to view image of tracing.
== END 2024-10-13 12:59 | disposition home or self-care (01) ==
LOC: EDH 11:22
DX: K21.9 Gastro-esophageal reflux disease without esophagitis (principal); K29.70 Gastritis, unspecified, without bleeding; E11.9 Type 2 diabetes mellitus without complications; E66.9 Obesity, unspecified; E78.00 Pure hypercholesterolemia, unspecified; I10 Essential (primary) hypertension; Z79.899 Other long term (current) drug therapy; Z98.890 Other specified postprocedural states
CPT/HCPCS: 99285; 96374; 71045; 96361; 96375; 82550; 84484; 80053; 83690; 85025; 81001; 36415; 93005; J7120; J2405; J2470

== ENCOUNTER 2025-03-23 23:09 | Emergency (ER) | payer MEDICAID ==
[~2025-03-23] VITALS: Ht 177.8 cm; Wt 115.2 kg
[~2025-03-23 23:09] MED LIST changes: +PANT40TA55 PO
[2025-03-23 23:32] LABS: IMMATURE GRANULOCYTE ABSOLUTE 0.06 K/uL (0-1); NUCLEATED RED BLOOD CELLS 0.0 % (0.0-0.19); PLATELET COUNT (AUTO) 252 K/uL (130-400); RED BLOOD CELL COUNT(AUTO) 4.61 MIL/uL (4.50-6.20); RED CELL DISTRIBUTION WIDTH 14.0 % (11.0-15.5); WHITE BLOOD COUNT (AUTO) 8.3 K/uL (4.8-10.8)
[2025-03-23 23:48] LABS: CREATINE KINASE, TOTAL 67.0 U/L (21-232); CREATININE 1.3 mg/dL (0.5-1.3); GLOMERULAR FILTR. RATE CALC 63.0 mL/min (>90); SODIUM SERUM 139.0 mmol/L (136-145); UREA NITROGEN, BLOOD 22.0 mg/dL (7-18)
--- NOTE | 2025-03-23 23:51 | NUR ---
UA COLLECTED AND SENT
[2025-03-23 23:55] LABS: GLUCOSE,RANDOM 549.0 mg/dL (70-105)
[2025-03-24 00:06] LABS: APPEARANCE,URINE CLEAR (CLEAR); GLUCOSE, URINE (UA) >=1000 mg/dL (NEGATIVE); LEUKOCYTE ESTERASE ,URINE NEGATIVE Leu/uL (NEGATIVE); NITRATE,URINE NEGATIVE (NEGATIVE); OCCULT BLOOD,URINE NEGATIVE (NEGATIVE); SQUAMOUS EPITHELIAL CELL,UR RARE /HPF (0-2)
--- NOTE | 2025-03-24 00:36 | HMCIMG ---
EXAM: CR Chest, 1 view CLINICAL HISTORY: Chest pain. COMPARISON: Chest radiograph dated 10/13/2024. FINDINGS: The lungs show no infiltrates or other acute findings. No pleural effusion or pneumothorax. The cardiomediastinal silhouette is within normal limits. No acute osseous abnormality. IMPRESSION: No acute cardiopulmonary process is evident. Compared to the prior study, there is no significant interval change. /[place]
--- NOTE | 2025-03-24 00:48 | ERN ---
ED Note History of Present Illness Stated Complaint: CHEST PAIN Chief Complaint: Chest Pain Time Seen by MD: 23:11 Dictation: This is a 60-year-old morbidly obese male with known history of diabetes mellitus basically came into the ER stating that his sugars are running high and he checked his sugars and he stopped was beginning to feel shaky and had some chest tightness which prompted checking the sugars. He stated that his sugars were 513. Usually takes insulin and Tresiba in the morning daily. When asked what changed today he denied any fever chills rigors. No burning micturition dysuria or hematuria. No flu-like syndrome. Patient does admit to dietary indiscretions Temperature 98.6 pulse 97 respirations 20 blood pressure 175/96 pulse oximetry 96% on room air His chronic medical problems include hypertension, hypercholesterolemia, diabetes mellitus type 2, gastroesophageal reflux disease and obesity. Allergies: Coded Allergies: No Known Allergies (Verified Allergy, Unknown, 05/31/20) Home Meds Active Scripts Pantoprazole Sodium (Protonix) 40 Mg Ectab, 1 TAB PO DAILY for 30 Days, #30 TAB 0 Refills Prov:ANAI DE ANDA MD 10/13/24 Benzonatate (Benzonatate) 200 Mg Capsule, 200 MG PO Q6HPRN PRN for COUGH/COLD SYMPTOMS for 7 Days, #28 CAP Prov:DWAIN MILAN NP 06/18/23 Oseltamivir Phosphate (Tamiflu) 75 Mg Cap, 75 MG PO BID for 5 Days, #10 CAP Prov:DWAIN MILAN COLD ROLLER 06/18/23 Acetaminophen (Tylenol) 325 Mg Tablet, 650 MG PO Q4HPRN, #50 TAB Prov:SHAWN JAIN 01/30/22 Ondansetron (Ondansetron Odt) 4 Mg Tab.rapdis, 4 MG PO TID, #21 TAB Prov:SHAWN JAIN 01/30/22 Dicyclomine HCl (Bentyl) 20 Mg Tab, 20 MG PO QIDP, #28 TAB Prov:SHAWN JAIN 01/30/22 Levofloxacin (Levofloxacin) 500 Mg Tablet, 1 TAB PO DAILY for 10 Days, #10 TAB 0 Refills Prov:SHAWN JAIN 01/30/22 Reported Medications Loratadine (Claritin) 10 Mg Tab, 1 TAB PO QDP 11/13/21 Omeprazole (Omeprazole) 40 Mg Capsule.dr, 1 CAP PO QDP 11/13/21 Amlodipine Besylate (Amlodipine Besylate) 5 Mg Tablet, 1 TAB PO QDP 11/13/21 Gemfibrozil (Gemfibrozil) 600 Mg Tablet, 1 TAB PO QDP 11/13/21 Cyanocobalamin (Vitamin B-12) (Vitamin B-12) 1,000 Mcg Tablet, 1 TAB PO QDP 11/13/21 Cholecalciferol (Vitamin D3) (Vitamin D3) 125 Mcg Capsule, 1 CAP PO QDP 11/13/21 Metoprolol Tartrate (Lopressor) 25 Mg Tab, 1 TAB PO BID 11/13/21 Past Medical History Past Medical History: Diabetes-Type I, Diabetes-Type II, High Cholesterol, Hypertension Additional Past Medical Hx: Obese Surgical History: Other Surgical History Other: KIDNEY CYST REMOVAL Family History: Negative Social History: Smokers, ETOH, Lives with family, Other RN Note Reviewed/Agreed w/PFSH: Yes Review of System Dictation Constitutional: Negative for fever,chills, and weight loss positive for high sugar Eyes: Negative for injury, pain,redness, and discharge ENT: Negative for injury,pain or swelling complains of mouth being dry Cardiovascular: Negative for chest pain, palpitations, and edema positive for tightness in his chest but denied any pain palpitations dyspnea Respiratory: Negative for shortness of breath, cough, and wheezing, Abdomen/GI: Negative for abdominal pain, nausea, vomiting, diarrhea, and constipation Back: Negative for injury and pain : Negative for injury, bleeding and discharge MS/Extremity: Negative for injury and deformity Skin: Negative for rash, and discoloration Neuro: Negative for headache, weakness, numbness, tingling, and seizure positive for shakiness anxiety symptoms Psych: Negative for suicide ideation, homicidal ideation, and hallucinations Initial Vital Sign VS Vital Signs Date Time Temp Pulse Resp B/P (MAP) Pulse Ox O2 Delivery O2 Flow Rate FiO2 03/23/25 23:11 98.6 97 20 175/96 96 Room Air 03/24/25 00:58 0 21 Physical Exam Dictation General: awake, alert, NAD morbidly obese Head/Face: Normocephalic, atraumatic Eyes: PERRL, EOMI, vision at baseline ENT: oral cavity clear, TMs clear, no signs of infection Neck: Trachea midline, supple, no nuchal rigidity Cardiovascular: RRR, normal S1/S2, No MRGs, no JVD mild reproducible chest wall Respiratory: CTAB, no respiratory distress, No rales or wheezes Abdomen: Soft, non-tender, non-distended, normal bowel sounds, no guarding or rebound. Skin: Warm, dry, normal turgor, no rash MS/Extremity: Pulses equal, no cyanosis, neurovascular intact, FROM Neuro: COAx4, GCS 15, strength 5/5, CN 2-12 intact, normal cerebellar exam, normal gait, Psych: Normal behavior, mood, and affect normal Extremities-trace edema without any palpable cords, Homans sign is negative Results (Laboratory/Radiology) Laboratory/Radiology Laboratory Tests Test 03/23/25 23:16 03/23/25 23:22 03/23/25 23:51 Whole Blood Glucose 513 MG/DL (70-110) *H Bedside Glucose Comment Notified Nurse White Blood Count 8.3 K/uL (4.8-10.8) Red Blood Count 4.61 MIL/uL (4.50-6.20) Hemoglobin 13.2 g/dL (14.0-18.0) L Hematocrit 40.6 % (42-54) L Mean Corpuscular Volume 88.1 fL (79-99) Mean Corpuscular Hemoglobin 28.6 pg (27.0-33.0) Mean Corpuscular Hemoglobin Concent 32.5 g/dL (32.0-36.0) Red Cell Distribution Width 14.0 % (11.0-15.5) Platelet Count 252 K/uL (130-400) Mean Platelet Volume 10.1 fL (7.5-10.5) Immature Granulocyte % (Auto) 0.7 % (0-1) Neutrophils (%) (Auto) 66.8 % (40.0-77.0) Lymphocytes (%) (Auto) 23.3 % (21.0-51.0) Monocytes (%) (Auto) 6.4 % (3.0-13.0) Eosinophils (%) (Auto) 2.2 % (0.0-8.0) Basophils (%) (Auto) 0.6 % (0.0-5.0) Neutrophils # (Auto) 5.6 K/uL (1.8-7.7) Lymphocytes # (Auto) 1.9 K/uL (1.0-4.8) Monocytes # (Auto) 0.5 K/uL (0.1-1.0) Eosinophils # (Auto) 0.18 K/uL (0.00-0.70) Basophils # (Auto) 0.05 K/uL (0.00-0.20) Absolute Immature Granulocyte (auto 0.06 K/uL (0-1) Nucleated Red Blood Cells 0.0 % (0.0-0.19) Sodium Level 139 mmol/L (136-145) Potassium Level 4.3 mmol/L (3.5-5.1) Chloride Level 104 mmol/L (101-111) Carbon Dioxide Level 24 mmol/L (21-32) Blood Urea Nitrogen 22 mg/dL (7-18) H Creatinine 1.3 mg/dL (0.5-1.3) Glomerular Filtration Rate Calc 63 mL/min (>90) Random Glucose 549 mg/dL (70-105) *H Total Calcium 8.9 mg/dL (8.5-10.1) Total Creatine Kinase 67 U/L (21-232) # Troponin I High Sensitivity 4.1 ng/L (4-75) Urine Color Light-Yellow (YELLOW) Urine Appearance CLEAR (CLEAR) Urine pH 6.0 (5.0-8.0) Urine Specific [place] 1.023 (1.001-1.031) Urine Protein NEGATIVE mg/dL (NEGATIVE) Urine Glucose (UA) >=1000 mg/dL (NEGATIVE) H Urine Ketones NEGATIVE mg/dL (NEGATIVE) Urine Occult Blood NEGATIVE (NEGATIVE) Urine Nitrate NEGATIVE (NEGATIVE) Urine Bilirubin NEGATIVE mg/dL (NEGATIVE) Urine Urobilinogen 0.2 mg/dL (0.2-1.0) Urine Leukocyte Esterase NEGATIVE [place]/uL Urine RBC None /HPF (0-1) Urine WBC 0-1 /HPF (0-1) Urine Squamous Epithelial Cells RARE /HPF (0-2) Urine Bacteria None /HPF (None Seen) Labs Reviewed?: Yes EKG Comment: Lead EKG done on 03/23/2025 at 11:08 p.m. showed a heart rate of 95, CO interval 157, QRS 102, QT/QTC 354/445 Impression normal sinus rhythm with nonspecific ST-T changes poor progression of the R-wave. Overall somewhat of a low voltage could be secondary to body habitus. EKG rhythm strip shows a normal sinus rhythm with nonspecific ST-T changes no acute ST-T elevations or deep ST depressions that I could appreciate. Interpreted by ER MD Dr. Burks X-RAY Comment: REASON: CHEST PAIN ORDERING PHYSICIAN: CELINA BURKS MD PROCEDURE: CXR1VW - CHEST 1VW EXAM: CR Chest, 1 view CLINICAL HISTORY: Chest pain. COMPARISON: Chest radiograph dated 10/13/2024. FINDINGS: The lungs show no infiltrates or other acute findings. No pleural effusion or pneumothorax. The cardiomediastinal silhouette is within normal limits. No acute osseous abnormality. IMPRESSION: No acute cardiopulmonary process is evident. Compared to the prior study, there is no significant interval change. /[place] DICTATED BY: DEVIN SCHROEDER Jr., MD DATE: 03/24/25134 ELECTRONICALLY SIGNED BY: DEVIN SCHROEDER Jr., MD DATE: 03/24/25134 ED Course ED Course Orders Procedure Category Date Status Time Vital Signs Per CPOE 03/23/25 Transmitted Routine 23:12 Chest 1vw RAD 03/23/25 Resulted 23:12 12 Lead Ekg Tracing- EKG 03/23/25 Logged Technical 23:12 Oxygen By Nc/Pulse Ox CPOE 03/23/25 Transmitted 23:12 Maintain Iv CPOE 03/23/25 Transmitted 23:12 Iv Insertion CPOE 03/23/25 Transmitted 23:12 Cardiac Monitoring CPOE 03/23/25 Transmitted 23:12 Pulse Oximetry With CPOE 03/23/25 Transmitted Vs And Prn 23:12 Cbc With Differential LAB 03/23/25 Complete 23:12 Activity: Br W/Brp CPOE 03/23/25 Transmitted With Assist 23:12 Basic Metabolic Panel LAB 03/23/25 Complete 23:12 Bedside Glucose CPOE 03/23/25 Transmitted Fingerstick 23:12 Cardiac Panel LAB 03/23/25 Complete 23:12 Urinalysis LAB 03/23/25 Complete W/Microscopic 23:51 0.9%Nacl 1000ml (Ns PHA 03/24/25 Complete 1000ml) 01:00 Insulin Regular, PHA 03/24/25 Complete Human 3ml (Humulin R 01:30 Random Accucheck At CPOE 03/24/25 Transmitted Bedside 02:02 Current Medications Medications (Trade) Dose Ordered Sig/John Route PRN Reason Start Time Stop Time Status Last Admin Dose Admin Insulin Human Regular (humuLIN R 100 UNIT/ML 3ML) 10 unit ONCE ONCE SQ 03/24/25 01:30 03/24/25 01:31 DC 03/24/25 01:42 Sodium Chloride 1,000 ml @ 0 mls/hr ONCE ONCE IV 03/24/25 01:00 03/24/25 01:01 DC 03/24/25 01:42 Vital Signs Date Time Temp Pulse Resp B/P (MAP) Pulse Ox O2 Delivery O2 Flow Rate FiO2 03/24/25 00:58 98.6 97 18 160/92 99 Room Air* 0 21 03/23/25 23:11 98.6 97 20 175/96 96 Room Air We will perform diagnostic labs, imaging and administer medications according to the patient's complaint. Once the results are available, will review and personally interpreted the labs to rule out any acute life-threatening emergency the trach require immediate intervention and treatment. I will then re-evaluate the patient after treatment and diagnostic exams have return to determine whether the patient requires any further testing, can safely be discharged home or need further admission to hospital for additional treatment and evaluation Counseling done on weight loss diet and exercise and optimizing his glycemic control to avoid long-term complications. HEART Score Response (Comments) Value History: Low suspicion (0) 0 EKG: Normal 0 Age: 45-65yrs (+1) 1 Risk Factors: 1-2 risk factors (+1) 1 Initial Troponin: Normal limit (0) 0 HEART Score Risk: Low Risk for MACE (1-3) Total 2 Medical Decision Making MDM Differential diagnosis: Anxiety, dehydration, hyperglycemia, low-grade infection This is a 60-year-old morbidly obese male with known history of diabetes mellitus basically came into the ER stating that his sugars are running high and he checked his sugars and he stopped was beginning to feel shaky and had some chest tightness which prompted checking the sugars. He stated that his sugars were 513. Usually takes insulin and Tresiba in the morning daily. When asked what changed today he denied any fever chills rigors. No burning micturition dysuria or hematuria. No flu-like syndrome. Patient does admit to dietary indiscretions Temperature 98.6 pulse 97 respirations 20 blood pressure 175/96 pulse oximetry 96% on room air His chronic medical problems include hypertension, hypercholesterolemia, diabetes mellitus type 2, gastroesophageal reflux disease and obesity. 12:40 a.m. labs reviewed CBC is with a normal limits BNP 7 showed a BUN and creatinine of 22 and 1.3 with a glucose of 549. Troponins are negative. Urinalysis is unremarkable. Chest x-ray is remarkable for any acute infiltrate. Patient received aggressive hydration and a small dose of insulin. 2:00 a.m. repeat Accu-Chek was 214. Patient feels significantly improved. We will discharge him to follow up with his primary care physician Rationale: Tests considered and ordered secondary to shared decision making include: Previous outside records reviewed: Old ER visits. Risk of complication and/or morbidity or mortality of patient management: None Medications-Per medication reconciliation Need for hospitalization: Patient does not meet criteria for hospitalization. Need for emergency major/minor surgery: No There are no social concerns with this patient. Prescription drug management Prescriptions will include symptomatic care Patient's prior external medical records from other ER visits were reviewed by me as indicated. Prior testing and results from previous visits were reviewed. Prior tests were taken into account with medical decision making and resource utilization, independent historian/historians were used to obtain complete medical history. I independently interpreted the test that were performed, results were reviewed by me and considered findings on radiology if ordered. Medical management and examination interpretation discussions were had by me with other qualified healthcare professionals as indicated for the patient's care. Problem List Problem List: (1) Uncontrolled diabetes mellitus with hyperglycemia (2) Acute kidney injury (3) Hypertension (4) Hypercholesterolemia (5) Obesity (6) Tobacco abuse (7) Chest wall pain DX & DISP Disposition: Discharge Departure Impression: Primary Impression: Uncontrolled diabetes mellitus with hyperglycemia Additional Impressions: Acute kidney injury, Hypertension, Hypercholesterolemia, Obesity, Tobacco abuse, Chest wall pain Condition: Stable Additional Instructions: Patient and the caregiver have been informed of all the diagnostic tests and the imaging conducted during the today's visit to the emergency room and has verba lized understanding of the results I have personally reviewed and interpreted all diagnostic exams performed here in the ER today as well as the vital signs documented by the nursing staff. The patient is now being discharged to home and should follow up with the primary care physician or the specialist as directed by the ER staff. Follow-up with primary care provider in 1 to 2 days. Take medications as directed here in the emergency room. Okay to continue home medications unless otherwise discussed during your visit in the emergency room today. Return to your nearest emergency room if symptoms worsen or if there is no improvement. Call 911 if you need immediate assistance. Take Tylenol or Motrin [id number] as needed and if no contraindications are present. Increase oral hydration. A wound culture or urine culture was ordered here in the emergency room department please follow-up with primary care provider and advise them to get repeat ports from our facility. If you had any John wrap/splints t hat were applied here, please do not remove them until you see your primary care or specialty. Patient must follow up with his primary care physician for close monitoring of sugars and adjusting his insulin and Tresiba dosing Referrals: SELF,REFERRAL (PCP) CELINA BURKS MD Mar 24, 2025 00:48
--- NOTE | 2025-03-24 00:57 | NUR ---
PATIENT CARE ASSUMED AT THIS TIME
[2025-03-24] MEDS: 0.9%NACL 1000ML 1,000 ML IV ONE (01:42)
[2025-03-24 02:21] VITALS: BP 138/82; PULSE 78; RESP 20; TEMP 98.4; O2SAT 98
--- NOTE | 2025-03-24 02:59 | EKG ---
[facility] Test Date: 2025-03-23 Test Time: 23:08:29 Pat Name: PRASHANT KU Department: ED Room: Gender: M Safe Expert: 08 : 1965 Requested By: CELINA MOJICA Order Number: [id number] Reading MD: Corey Rizo Measurements Intervals [place] Rate: 95 P: 21 OR: 157 QRS: -15 QRSD: 102 T: -2 QT: 354 QTc: 445 Interpretive Statements Sinus rhythm Compared to ECG 10/13/2024 11:36:58 No significant changes Electronically Signed On 03-25-2025 16:08:05 CDT by Corey Rizo Please click the below link to view image of tracing.
== END 2025-03-24 02:30 | disposition home or self-care (01) ==
LOC: EDH 23:09
DX: E10.65 Type 1 diabetes mellitus with hyperglycemia (principal); N17.9 Acute kidney failure, unspecified; I10 Essential (primary) hypertension; E78.00 Pure hypercholesterolemia, unspecified; E66.9 Obesity, unspecified; K21.9 Gastro-esophageal reflux disease without esophagitis; R07.89 Other chest pain; F17.200 Nicotine dependence, unspecified, uncomplicated; Z79.899 Other long term (current) drug therapy; Z68.36 Body mass index [BMI] 36.0-36.9, adult
CPT/HCPCS: 99285; 71045; 82550; 84484; 80048; 85025; 82948 ×2; 81001; 36415; 93005; 96372; J1815; J7030 ×2